=== PATIENT | male | born 1985 | race Caucasian/White ===

== ENCOUNTER 2017-09-15 18:07 | Emergency (ER) | payer SELFPAY ==
[~2017-09-15] VITALS: Ht 177.8 cm; Wt 90.9 kg
[~2017-09-15 18:07] MED LIST: NOHOMEMEDS
[2017-09-15] MEDS ORDERED: KEFLEX500 MG PO (20:07)
[2017-09-15 20:30] VITALS: BP 118/70
== END 2017-09-15 20:31 | disposition home or self-care (01) ==
LOC: EME 18:07
DX: S91.111A Laceration without foreign body of right great toe without damage to nail, initial encounter (principal); W28.XXXA Contact with powered lawn mower, initial encounter; Y93.H2 Activity, gardening and landscaping; Z23 Encounter for immunization; F17.200 Nicotine dependence, unspecified, uncomplicated
CPT/HCPCS: 73630; 99281; 99284; S0020